=== PATIENT | male | born 1975 | race Caucasian/White ===

== ENCOUNTER 2018-11-22 17:31 | Emergency (ER) | payer BC, OTHER ==
[2018-11-22 17:51] VITALS: BP 128/86
[2018-11-22] MEDS ORDERED: predniSONE TAB* 20 MG PO ONE (18:19)
[2018-11-22] MEDS ORDERED: predniSONE TAB* 10 MG PO ONE (18:20)
--- NOTE | 2018-11-22 18:32 | UC ---
Respiratory Complaint HPI - HPI Summary HPI Summary: 43 yo male with life long hx of asthma has felt short of breath at times the past three days onset with severe nasal congestion /post nasal drip now chest tightness and wheezing has not used his rescue inhaler no fever no chest pain no hx of admission for asthma - History of Current Complaint Chief Complaint: UCRespiratory Stated Complaint: COUGH, SOB Time Seen by Provider: 11/22/18 18:11 Hx Obtained From: Patient Onset/Duration: Gradual Onset, Lasting Days Timing: Constant Severity Initially: Mild Severity Currently: Moderate Pain Intensity: 3 Pain Scale Used: 0-10 Numeric Character: Cough: Nonproductive Aggravating Factors: Allergens, Recumbent Position Alleviating Factors: Spontaneous Resolution Associated Signs And Symptoms: Positive: Wheezing, Nasal Congestion, Sinus Discomfort - Allergies/Home Medications Allergies/Adverse Reactions: Allergies Allergy/AdvReac Type Severity Reaction Status Date / Time No Known Allergies Allergy Verified 11/22/18 17:51 PMH/Surg Hx/FS Hx/Imm Hx Previously Healthy: Yes Endocrine History: Diabetes Cardiovascular History: Cardiac Disease Respiratory History: Asthma - Surgical History Surgical History: Yes Surgery Procedure, Year, and Place: appendectomy - Family History Known Family History: Negative: Cardiac Disease, Hypertension, Diabetes - Social History Alcohol Use: None Substance Use Type: None Smoking Status (MU): Never Smoked Tobacco Review of Systems All Other Systems Reviewed And Are Negative: Yes Constitutional: Positive: Negative Skin: Positive: Negative Eyes: Positive: Negative ENT: Positive: Negative Respiratory: Positive: Shortness Of Breath - at times, Cough, Other - wheezing at times Cardiovascular: Positive: Negative Gastrointestinal: Positive: Negative Genitourinary: Positive: Negative Motor: Positive: Negative Neurovascular: Positive: Negative Musculoskeletal: Positive: Negative Neurological: Positive: Negative Psychological: Positive: Negative Physical Exam Triage Information Reviewed: Yes Appearance: Well-Appearing, No Pain Distress, Well-Nourished Vital Signs: Initial Vital Signs Temp 98.3 F 11/22/18 17:45 Pulse 68 11/22/18 17:45 Resp 16 11/22/18 17:45 BP 128/86 11/22/18 17:45 Pulse Ox 98 11/22/18 17:45 Vital Signs Reviewed: Yes Eyes: Positive: Conjunctiva Clear ENT: Positive: Hearing grossly normal, Nasal congestion, TMs normal, Uvula midline. Negative: Nasal drainage, Tonsillar swelling, Tonsillar exudate, Trismus, Muffled voice, Hoarse voice, Dental tenderness, Sinus tenderness Neck: Positive: Supple, Nontender, No Lymphadenopathy Respiratory: Positive: Lungs clear, Normal breath sounds, No respiratory distress, No accessory muscle use Cardiovascular: Positive: RRR, No Murmur Abdomen Description: Positive: Nontender Musculoskeletal Exam: Normal Neurological: Positive: Alert Psychological Exam: Normal Skin Exam: Normal Respiratory Course/Dx - Differential Dx/Diagnosis Provider Diagnosis: Bronchospasm, Seasonal allergic rhinitis Discharge - Sign-Out/Discharge Documenting (check all that apply): Patient Departure All imaging exams completed and their final reports reviewed: No Studies - Discharge Plan Condition: Stable Disposition: HOME Prescriptions: predniSONE [Deltasone 20 MG TAB] 40 mg PO DAILY #8 tab Patient Education Materials: Bronchospasm (ED) Referrals: Loi Posada MD [Medical Doctor] - 2 Weeks Christoph Jett MD [Medical Doctor] - 2 Weeks Additional Instructions: I suggest you see an waste cotton cleaner use your rescue inhaler as directed - Billing Disposition and Condition Condition: STABLE Disposition: Home
== END 2018-11-22 18:35 | disposition home or self-care (01) ==
LOC: UCEAST 17:31
DX: J45.909 Unspecified asthma, uncomplicated (principal); J30.2 Other seasonal allergic rhinitis; E11.9 Type 2 diabetes mellitus without complications; I51.9 Heart disease, unspecified
CPT/HCPCS: 99212; G0463; J7512